=== PATIENT | male | born 1985 | race African-American/Black ===

== ENCOUNTER 2022-08-15 21:36 | Emergency (ER) | payer OTHER, MEDICAID, SELFPAY ==
[2022-08-15 21:41] VITALS: BP 199/121; PULSE 105; RESP 17; TEMP 36.9; O2SAT 99; BMI 37.6
--- NOTE | 2022-08-15 22:00 | PC.NURSE ---
refused paper gown refused blood work at this time. Dr. Lockett at bedside.
--- NOTE | 2022-08-15 22:17 | PC.NURSE ---
[id number] Patient refusing to change into paper scrubs, give urine sample, or receive blood draw. He denies suicidal ideation at this time, does not want to stay and receive treatment. Dr. Lockett informed and at bedside. Isaac sitting at bedside monitoring patient.
--- NOTE | 2022-08-15 22:32 | ED_ITS ---
HPI - Psych General Chief Complaint: Psychiatric Symptoms Stated Complaint: mental health Time Seen by Provider: 08/15/22 21:44 Source: patient and EMS Mode of arrival: Ambulatory History of Present Illness HPI Narrative: Patient is a 37-year-old male who is brought in by EMS for evaluation of a mental health issue. He did come in voluntarily. He states that earlier this evening he came home to find his cheating on him. He states that he became very distraught after this. He left the house. He states he drove to the [employer]. He did claim over the railing and was standing there contemplating jumping but he states that instead he called the police. The police were able to talk him back over the railing. He voluntarily came to the ER. At the time of my evaluation he states that he is feeling better. He state s he was just very distraught over the events of this evening. Since the event on the bridge she is been able to talk with his 19-year-old daughter. He states he has calmed down tremendously. He states he is not suicidal. Not homicidal. When I was discussing with him the events of this evening he stated that after talking with his daughter he came to realize he has 3 kids at home and would ne ivan hurt himself and do that to his kids. He states that 1 of his kids actually kicked his out of the house and he stated that ?she can leave instead of me? Related Data Home Medications Medication Instructions Recorded Confirmed No Known Home Medications 08/15/22 08/15/22 Allergies Allergy/AdvReac Type Severity Reaction Status Date / Time No Known Drug Allergies Allergy Verified 08/15/22 21:45 Review of Systems Constitutional Constitutional: Reports system reviewed and no additional complaints, except as documented Psychiatric Psychiatric: Reports system reviewed and no additional complaints, except as documented Hematologic/Lymphatic On Anticoagulants: No Patient History Medical History (Updated 08/16/22 @ 01:39 by Teo Lockett DO) Hypertension Social History Smoking Status: Never smoker Smoking Status: Never smoker alcohol intake frequency: other Substance Use Type: does not use Exam Initial Vital Signs Initial Vital Signs: Vital Signs Temperature 98.5 F 08/15/22 21:41 Pulse Rate 105 H 08/15/22 21:41 Respiratory Rate 17 08/15/22 21:41 Blood Pressure 199/121 H 08/15/22 21:41 Pulse Oximetry 99 08/15/22 21:41 Oxygen Delivery Method 08/15/22 21:41 [facility] Head: normal to inspection Resp Effort & Inspection: normal respiratory effort Cardio Rate: regular rate Skin General: no rashes or lesions noted Neuro General: patient alert, patient awake, patient oriented x3 and moves all extremities Psych Other: Patient is calm, cooperative, not suicidal, not homicidal, patient is not combative. Clear thought process. Scores GCS [place] coma scale eye opening: Spontaneous [place] coma scale verbal response: Orientated [place] coma scale motor response: Obey commands [place] coma scale total score: 15 Course Orders Ordered: ED Orders 08/15/22 21:45 Consult to [facility] - Adolescent Counselor Stat Consult to [facility] Adolescent Counselor Stat Vital Signs Vital signs: Vital Signs - 8 hr 08/15/22 21:41 Temperature 98.5 F Pulse Rate 105 H Respiratory Rate 17 Blood Pressure 199/121 H Pulse Oximetry 99 Oxygen Delivery Method Room Air MDM - Psych MDM Narrative Medical decision making narrative: Patient is not homicidal. Not suicidal. Has a GCS of 15. Is alert oriented x3. Afebrile. No signs of trauma. He is calm. Not clinically intoxicated. In my opinion has the capacity to make decisions. He states he is not suicidal. He states he would not hurt himself because of his kids. He came to realize this after talking with his kids. He states that he was very distraught over the events of this evening. He states he feels safe at home. Stated that he would either call the police or return to the emergency department if any thoughts of hurting himself reoccurred. Will discharge patient home. Discharge Plan Departure Patient Disposition: Home Clinical Impression: Adjustment disorder Activity Restrictions/Additional Instructions: I am sorry about the situation that brought you here to the emergency department. I recommend that if you develop any new symptoms that you contact the police or the paramedics or come to the emergency department. Prescriptions: No Action No Known Home Medications
== END 2022-08-15 23:00 | disposition home or self-care (01) ==
PROVIDERS: Emergency Provider Emergency Medicine
DX: F43.20 Adjustment disorder, unspecified (principal)
CPT/HCPCS: 99283